=== PATIENT | female | born 1930 | race Caucasian/White ===

== ENCOUNTER 2016-09-01 11:21 | Inpatient (IN) | payer OTHER ==
[~2016-09-01] VITALS: Ht 167.6 cm; Wt 101.8 kg
[~2016-09-01 11:21] MED LIST: ALLOPURINOL100 MG PO; Ambien PO; BENZONATATE100 MG PO; CARDIZEM CD120 M1 PO; CARDIZEM CD240 MG PO; CARTIA XT120 MG PO; CARTIA XT240 MG PO; CIPRO500 MG PO; COLACE100 MG PO; Cardizem CD,Cartia X PO; Colace PO; DILTIAZEM 24HR240 MG PO; FUROSEMIDE40 MG PO; GEMFIBROZIL600 MG PO; K-DUR20 MEQ PO; LASIX40 MG PO; LEVAQUIN750 MG PO; Lopid PO; MUCINEX600 MG PO; Miralax, Glycolax PO; PANTOPRAZOLE SO40 MG PO; PAROXETINE HCL20 MG PO; PAXIL20 MG PO; PRAVASTATIN SOD40 MG PO; PROAIR HFA8.5 GM IH; Paxil PO; Potassium Chloride 1 PO; Protonix PO; SIMVASTATIN20 MG PO; TYLENOL ARTHRI650 MG PO; TYLENOL PM1 CAPLET PO; TYLENOL REGULA325 MG PO; Toprol XL PO; XARELTO15 MG PO; Xarelto PO; ZESTORETIC 20-1 EAC1 PO; Zestoretic,Prinzide PO; Zyloprim PO
[2016-09-01 12:54] LABS: HEMATOCRIT 23.8 % (36.0-46.0); MCH 37.1 PG (29.0-34.0); MCHC 33.2 G/DL (30.0-36.0); MCV 111.7 FL (83-99); MEAN PLAT.VOLUME 9.9 uM^3 (9.5-12.4); PLATELET COUNT 100 K/uL (156-360); RBC DIS.WIDTH-CV 15.9 % (11.8-14.6); RBC DIS.WIDTH-SD 64.4 % (39-53); RED BLOOD COUNT 2.13 M/uL (3.80-5.20)
[2016-09-01 12:56] LABS: INTER. NORMALIZED RATIO 1.2; PROTHROMBIN TIME 12.4 (9.2-11.2)
[2016-09-01 12:57] LABS: WHITE BLOOD COUNT 1.8 K/uL (4.1-10.2)
[2016-09-01 13:12] LABS: CHLORIDE 104 mEq/L (99-109); POTASSIUM 4.8 mEq/L (3.7-5.4); SODIUM 140 mEq/L (136-147)
[2016-09-01 13:14] LABS: GLUCOSE 139 mg/dL (70-99)
[2016-09-01 13:16] LABS: ANION GAP 12 MEQ/L (2-14); TOTAL BILIRUBIN 0.4 mg/dL (0.0-1.0)
[2016-09-01 13:18] LABS: ALKALINE PHOSPHATASE 93 IU/L (3-129); GFR ESTIMATE (CALCULATED) 33 mL/min/
[2016-09-01 13:19] LABS: UREA NITROGEN (BUN) 43 mg/dL (9-23)
[2016-09-01 15:39] LABS: PTT 26.6 (25-32)
[2016-09-01] MEDS ORDERED: ALLOPURINOL300 MG PO (15:56)
[2016-09-01] MEDS ORDERED: BUSPIRONE HCL10 MG PO (15:59)
[2016-09-01] MEDS ORDERED: ENDOCET 5-3251 EACH PO (15:59)
[2016-09-01 16:00] LABS: FIBRINOGEN 523 MG/DL (160-450)
[2016-09-01] MEDS ORDERED: VITAMIN D31000 UNI2 PO ×2 (16:00→18:52)
[2016-09-01] MEDS ORDERED: TYLENOL ARTHRI650 MG PO (16:12)
[2016-09-01 16:13] VITALS: BP 112/96
[2016-09-01 17:15] LABS: ABS NEUTROPHIL COUNT 0.5; ANISOCYTOSIS 2+; EOSINOPHIL ABS CT 0; MACROCYTES 2+; POIKILOCYTOSIS 1+; SCHISTOCYTES 1+
[2016-09-01 17:25] LABS: PLAT.SUFFICIENCY DECREASED
[2016-09-01 18:17] VITALS: BP 135/61
[2016-09-01 18:21] VITALS: BP 139/63
[2016-09-01 18:42] VITALS: BP 142/63
[2016-09-01 19:49] VITALS: BP 138/62
[2016-09-01 19:59] VITALS: BP 126/60
[2016-09-02] VITALS (7 sets, daily range): BP systolic 134–142; BP diastolic 60–68
[2016-09-02 05:27] LABS: HEMATOCRIT 25.5 % (36.0-46.0); MCH 35.2 PG (29.0-34.0); MCHC 33.7 G/DL (30.0-36.0); MCV 104.5 FL (83-99); RBC DIS.WIDTH-CV 19.2 % (11.8-14.6); RBC DIS.WIDTH-SD 72.5 % (39-53); RED BLOOD COUNT 2.44 M/uL (3.80-5.20)
[2016-09-02 05:44] LABS: ANION GAP 10 MEQ/L (2-14); CHLORIDE 102 MEQ/L (99-109); GFR ESTIMATE (CALCULATED) 41 mL/min/; GLUCOSE 112 mg/dL (70-99); POTASSIUM 4.3 MEQ/L (3.7-5.4); SAMPLE HEMOLYSIS CHECK 0; SAMPLE ICTERIC CHECK 0; SAMPLE LIPEMIA CHECK 0; SODIUM 138 MEQ/L (136-147); UREA NITROGEN (BUN) 35 mg/dL (9-23); URIC ACID 6.2 mg/dL (3.1-9.2)
[2016-09-02 11:00] LABS: ABS NEUTROPHIL COUNT 0.5; ANISOCYTOSIS 2+; EOSINOPHIL ABS CT 0.1; INSTRUMENT ABS NEUTROPHIL CT 0.4 K/uL; MACROCYTES 1+; MEAN PLAT.VOLUME 9.7 uM^3 (9.5-12.4); MICROCYTOSIS 1+; PLAT.SUFFICIENCY DECREASED
[2016-09-03] VITALS (7 sets, daily range): BP systolic 125–173; BP diastolic 58–72
[2016-09-03 07:08] LABS: HEMATOCRIT 25.9 % (36.0-46.0); MCH 34.7 PG (29.0-34.0); MCHC 33.6 G/DL (30.0-36.0); MCV 103.2 FL (83-99); MEAN PLAT.VOLUME 9.1 uM^3 (9.5-12.4); RBC DIS.WIDTH-CV 18.7 % (11.8-14.6); RBC DIS.WIDTH-SD 70.8 % (39-53); RED BLOOD COUNT 2.51 M/uL (3.80-5.20)
[2016-09-03 07:14] LABS: ANION GAP 9 MEQ/L (2-14); CHLORIDE 99 MEQ/L (99-109); GFR ESTIMATE (CALCULATED) 45 mL/min/; GLUCOSE 109 mg/dL (70-99); PLATELET COUNT 67 K/uL (156-360); POTASSIUM 3.9 MEQ/L (3.7-5.4); SAMPLE HEMOLYSIS CHECK 0; SAMPLE ICTERIC CHECK 0; SAMPLE LIPEMIA CHECK 0; SODIUM 137 MEQ/L (136-147); UREA NITROGEN (BUN) 28 mg/dL (9-23); WHITE BLOOD COUNT 1.6 K/uL (4.1-10.2)
[2016-09-03 07:56] LABS: GLOBULINS 3.3 G/DL (2.3-3.5)
[2016-09-03 09:04] LABS: ABS NEUTROPHIL COUNT 0.4; ANISOCYTOSIS 2+; EOSINOPHIL ABS CT 0; INSTRUMENT ABS NEUTROPHIL CT 0.3 K/uL; MACROCYTES 2+; PLAT.SUFFICIENCY DECREASED
[2016-09-04 03:47] VITALS: BP 150/65
[2016-09-04 07:42] VITALS: BP 120/62
[2016-09-04 11:34] VITALS: BP 139/62
[2016-09-04 15:45] VITALS: BP 143/62
[2016-09-04 19:01] VITALS: BP 134/61
[2016-09-04 22:42] VITALS: BP 139/65
[2016-09-05] VITALS (8 sets, daily range): BP systolic 110–172; BP diastolic 62–85
[2016-09-05 07:29] LABS: HEMATOCRIT 25.5 % (36.0-46.0); MCH 34.9 PG (29.0-34.0); MCHC 34.1 G/DL (30.0-36.0); MCV 102.4 FL (83-99); RBC DIS.WIDTH-CV 18.2 % (11.8-14.6); RBC DIS.WIDTH-SD 67.9 % (39-53); RED BLOOD COUNT 2.49 M/uL (3.80-5.20)
[2016-09-05 07:31] LABS: ANION GAP 11 MEQ/L (2-14); CHLORIDE 98 MEQ/L (99-109); GFR ESTIMATE (CALCULATED) 50 mL/min/; GLUCOSE 115 mg/dL (70-99); SAMPLE HEMOLYSIS CHECK 0; SAMPLE ICTERIC CHECK 0; SAMPLE LIPEMIA CHECK 0; SODIUM 137 MEQ/L (136-147); UREA NITROGEN (BUN) 25 mg/dL (9-23)
[2016-09-05 07:35] LABS: WHITE BLOOD COUNT 1.7 K/uL (4.1-10.2)
[2016-09-05 07:47] LABS: ABS NEUTROPHIL COUNT 0.6; ANISOCYTOSIS 2+; ATYPICAL LYMPHOCYTE 1.8 %; BAND NEUTROPHILS 2.7 % (0-8.0); BASOPHILS 8.9 %; EOSINOPHIL ABS CT 0; INSTRUMENT ABS NEUTROPHIL CT 0.4 K/uL; LYMPHOCYTES 48.2 % (15.0-45.0); MACROCYTES 1+; MEAN PLAT.VOLUME 9.9 uM^3 (9.5-12.4); METAMYELOCYTES 0.9 %; MYELOCYTES 0.9 %; PLAT.SUFFICIENCY DECREASED; PLATELET COUNT 73 K/uL (156-360); POIKILOCYTOSIS 1+; SEG.NEUTROPHILS 30.4 % (46.0-76.0)
[2016-09-05 12:32] LABS: ORDERED MAN DIFF Y
[2016-09-05] MEDS ORDERED: LASIX40 MG PO (12:46)
[2016-09-05 14:06] LABS: ALBUMIN PERCENT 53.8 %; ALPHA-1 GLOBULIN 0.23 G/DL (0.15-0.40); ALPHA-1 PERCENT 3.6 %; ALPHA-2 GLOBULIN 0.86 G/DL (0.45-0.85); ALPHA-2 PERCENT 13.3 %; BETA PERCENT 9.6 %; GAMMA PERCENT 19.7 %; SERUM GEL NO. 61-7
[2016-09-06 13:55] LABS: IFE GEL NO. 59-2
[2016-09-07 13:41] LABS: Flow Clinical Information NOT PROVIDED (()); Flow Number of Markers 22 (()); Flow Spec Viability 96 % (()); Flow Specimen Type BONE MARROW (())
== END 2016-09-05 19:58 | disposition home or self-care (01) | DRG 309 ==
LOC: EME 11:21 → EDOF 15:57 → 5EAST 15:57
PROVIDERS: Family Medicine Sports Medicine; Internal Medicine Hematology & Oncology; Nurse Practitioner Family; Radiology Diagnostic Radiology
PROC: 30233N1 Transfusion of Nonautologous Red Blood Cells into Peripheral Vein, Percutaneous Approach (ICD-10-PCS; principal; 2016-09-01)
PROC: 07DR3ZX Extraction of Iliac Bone Marrow, Percutaneous Approach, Diagnostic (ICD-10-PCS; 2016-09-05)
DX: I48.0 Paroxysmal atrial fibrillation (principal); D61.818 Other pancytopenia; D64.9 Anemia, unspecified; D72.819 Decreased white blood cell count, unspecified; D69.6 Thrombocytopenia, unspecified; I10 Essential (primary) hypertension; C85.90 Non-Hodgkin lymphoma, unspecified, unspecified site; I48.2 Chronic atrial fibrillation; E78.5 Hyperlipidemia, unspecified; F32.9 Major depressive disorder, single episode, unspecified; I50.9 Heart failure, unspecified; F41.9 Anxiety disorder, unspecified; M10.9 Gout, unspecified; Z79.01 Long term (current) use of anticoagulants; I25.10 Atherosclerotic heart disease of native coronary artery without angina pectoris; K21.9 Gastro-esophageal reflux disease without esophagitis
CPT/HCPCS: 36415; 71020; 77012; 80048; 80053; 81003; 82746; 83540; 83883 90; 84165; 84466; 84550; 85007; 85025; 85027; 85384; 85610; 85730; 85999; 86334; 86900; 86901; 86920; 88184 90; 88185 90; 88189 90; 88271 90; 88275 90; 88291 90; 99281; 99285; J1650; J1940; J2405; J3010; P9016

== ENCOUNTER 2016-10-07 14:39 | Inpatient (IN) | payer OTHER ==
[~2016-10-07] VITALS: Ht 165.1 cm; Wt 100.1 kg
[~2016-10-07 14:39] MED LIST changes: +ALLOPURINOL300 MG PO; +BUSPIRONE HCL10 MG PO; +ENDOCET 5-3251 EACH PO; +VITAMIN D31000 UNI2 PO
[2016-10-07 16:06] LABS: HEMATOCRIT 26.4 % (36.0-46.0); MCH 33.5 PG (29.0-34.0); MCHC 33.3 G/DL (30.0-36.0); MEAN PLAT.VOLUME 9.6 uM^3 (9.5-12.4); NRBC (%) 0.6 /100 WBC (0-0); PLATELET COUNT 56 K/uL (156-360); RBC DIS.WIDTH-CV 22.2 % (11.8-14.6); RBC DIS.WIDTH-SD 80.1 % (39-53); RED BLOOD COUNT 2.63 M/uL (3.80-5.20); WHITE BLOOD COUNT 3.3 K/uL (4.1-10.2)
[2016-10-07 16:09] LABS: MCV 100.4 FL (83-99)
[2016-10-07 16:29] LABS: CHLORIDE 97 mEq/L (99-109); POTASSIUM 4.2 mEq/L (3.7-5.4); SODIUM 136 mEq/L (136-147)
[2016-10-07 16:30] LABS: GLUCOSE 118 mg/dL (70-99)
[2016-10-07 16:32] LABS: ANION GAP 15 MEQ/L (2-14)
[2016-10-07 16:34] LABS: GFR ESTIMATE (CALCULATED) 56 mL/min/
[2016-10-07 16:35] LABS: UREA NITROGEN (BUN) 19 mg/dL (9-23)
[2016-10-07 17:47] LABS: TROP-I INTERPRETATION NEGATIVE; TROPONIN-I < 0.01 ng/mL (0.0-0.30)
[2016-10-07 20:43] LABS: ADD MIUA? YES; BILIRUBIN NEGATIVE; BLOOD SMALL; COLOR YELLOW ((YELLOW)); GLUCOSE (STRIP) NEGATIVE; KETONES NEGATIVE; LEUKOCYTES NEGATIVE; NITRITE POSITIVE; PROTEIN (STRIP) NEGATIVE; SPECIFIC GRAVITY 1.014 (1.000-1.030); UROBILINOGEN 0.2 MG/DL (0.2-1.0)
[2016-10-07 20:58] LABS: BACTERIA 3+ /HPF; EPITHELIAL CELLS 2+ /HPF; HYALINE CASTS 0-5 /LPF; MUCUS TRACE /LPF; RED BLOOD CELLS 0-5 /HPF (0-5); UCUL ADDED? NO; WHITE BLOOD CELLS 0-5 /HPF (0-5)
[2016-10-07] MEDS ORDERED: AMBIEN5 MG PO (22:06)
[2016-10-08] VITALS (15 sets, daily range): BP systolic 139–176; BP diastolic 64–79
[2016-10-08 08:15] LABS: HEMATOCRIT 21.8 % (36.0-46.0); MCH 34.7 PG (29.0-34.0); MCHC 33.9 G/DL (30.0-36.0); MCV 102.3 FL (83-99); RBC DIS.WIDTH-CV 22.7 % (11.8-14.6); RBC DIS.WIDTH-SD 84.4 % (39-53); RED BLOOD COUNT 2.13 M/uL (3.80-5.20); WHITE BLOOD COUNT 2.9 K/uL (4.1-10.2)
[2016-10-08 09:05] LABS: ANION GAP 8 MEQ/L (2-14); CHLORIDE 98 MEQ/L (99-109); GFR ESTIMATE (CALCULATED) 56 mL/min/; GLUCOSE 111 mg/dL (70-99); SAMPLE HEMOLYSIS CHECK 0; SAMPLE ICTERIC CHECK 0; SAMPLE LIPEMIA CHECK 0; SODIUM 133 MEQ/L (136-147); UREA NITROGEN (BUN) 19 mg/dL (9-23)
[2016-10-08 09:56] LABS: ABS NEUTROPHIL COUNT 1.1; ANISOCYTOSIS 2+; BAND NEUTROPHILS 3.5 % (0-8.0); BASOPHILS 6.1 %; EOSINOPHIL ABS CT 0; HYPOCHROMASIA 1+; IMM.PLATELET FRACTION 1.9 (1-7); INSTRUMENT ABS NEUTROPHIL CT 0.8 K/uL; LYMPHOCYTES 42.6 % (15.0-45.0); MACROCYTES 1+; MEAN PLAT.VOLUME 10.7 uM^3 (9.5-12.4); METAMYELOCYTES 0.9 %; MICROCYTOSIS 1+; MYELOCYTES 1.7 %; PLAT.SUFFICIENCY DECREASED; PLATELET COUNT 50 K/uL (156-360); POLYCHROMASIA 1+; SEG.NEUTROPHILS 33.9 % (46.0-76.0); SPHEROCYTES 1+
[2016-10-09 04:10] VITALS: BP 152/66
[2016-10-09 06:52] LABS: MCH 34.4 PG (29.0-34.0); MCHC 34.8 G/DL (30.0-36.0); MCV 98.8 FL (83-99); RBC DIS.WIDTH-CV 21.5 % (11.8-14.6); RBC DIS.WIDTH-SD 73.2 % (39-53); RED BLOOD COUNT 2.53 M/uL (3.80-5.20); WHITE BLOOD COUNT 3.3 K/uL (4.1-10.2)
[2016-10-09 07:16] LABS: ANION GAP 11 MEQ/L (2-14); CHLORIDE 100 MEQ/L (99-109); GFR ESTIMATE (CALCULATED) 56 mL/min/; GLUCOSE 127 mg/dL (70-99); POTASSIUM 3.6 MEQ/L (3.7-5.4); SAMPLE HEMOLYSIS CHECK 0; SAMPLE ICTERIC CHECK 0; SAMPLE LIPEMIA CHECK 0; SODIUM 136 MEQ/L (136-147); UREA NITROGEN (BUN) 20 mg/dL (9-23); URIC ACID 6.2 mg/dL (3.1-9.2)
[2016-10-09 07:31] VITALS: BP 127/58
[2016-10-09 11:18] LABS: ABS NEUTROPHIL COUNT 2.2; ANISOCYTOSIS 2+; ATYPICAL LYMPHOCYTE 0.9 %; BAND NEUTROPHILS 13.2 % (0-8.0); BASOPHILS 1.7 %; EOSINOPHIL ABS CT 0; HYPOCHROMASIA 2+; IMM.PLATELET FRACTION 1.9 (1-7); INSTRUMENT ABS NEUTROPHIL CT 1.2 K/uL; MACROCYTES 1+; MEAN PLAT.VOLUME 11.4 uM^3 (9.5-12.4); METAMYELOCYTES 4.4 %; MICROCYTOSIS 1+; MYELOCYTES 0.9 %; NUCLEATED RBC'S 0.9; PLAT.SUFFICIENCY DECREASED; PLATELET COUNT 46 K/uL (156-360); POLYCHROMASIA 1+; SEG.NEUTROPHILS 53.5 % (46.0-76.0); SPHEROCYTES 1+; TOX.VACUOLIZATION 1+
[2016-10-09 11:19] LABS: LYMPHOCYTES 19.3 % (15.0-45.0)
[2016-10-09 13:19] VITALS: BP 128/59
[2016-10-09 15:40] VITALS: BP 133/59
[2016-10-09 20:29] VITALS: BP 146/66
[2016-10-10] VITALS (7 sets, daily range): BP systolic 127–140; BP diastolic 58–91
[2016-10-10 08:30] LABS: HEMATOCRIT 24.7 % (36.0-46.0); RBC DIS.WIDTH-CV 21.9 % (11.8-14.6); RBC DIS.WIDTH-SD 76.8 % (39-53); RED BLOOD COUNT 2.47 M/uL (3.80-5.20); WHITE BLOOD COUNT 3.5 K/uL (4.1-10.2)
[2016-10-10 08:57] LABS: ANION GAP 10 MEQ/L (2-14); CHLORIDE 101 MEQ/L (99-109); GFR ESTIMATE (CALCULATED) 50 mL/min/; GLUCOSE 116 mg/dL (70-99); SAMPLE HEMOLYSIS CHECK 2; SAMPLE ICTERIC CHECK 0; SAMPLE LIPEMIA CHECK 0; SODIUM 135 MEQ/L (136-147); UREA NITROGEN (BUN) 22 mg/dL (9-23)
[2016-10-10 09:00] LABS: POTASSIUM ND MEQ/L (3.7-5.4)
[2016-10-10 10:32] LABS: POTASSIUM 3.9 MEQ/L (3.7-5.4)
[2016-10-10 10:33] LABS: ABS NEUTROPHIL COUNT 2.1; ANISOCYTOSIS 1+; ATYPICAL LYMPHOCYTE 4.6 %; BAND NEUTROPHILS 9.3 % (0-8.0); BASOPHILS 4.6 %; EOSINOPHIL ABS CT 0; EOSINOPHILS 0.9 % (0-5.0); IMM.PLATELET FRACTION 2.6 (1-7); INSTRUMENT ABS NEUTROPHIL CT 1.3 K/uL; LYMPHOCYTES 13.9 % (15.0-45.0); MACROCYTES 1+; MEAN PLAT.VOLUME 11.2 uM^3 (9.5-12.4); METAMYELOCYTES 1.9 %; MYELOCYTES 7.4 %; NUCLEATED RBC'S 0.9; PLAT.SUFFICIENCY DECREASED; PLATELET COUNT 50 K/uL (156-360); SEG.NEUTROPHILS 50.9 % (46.0-76.0); SMUDGE CELLS 17.6
[2016-10-11 03:38] VITALS: BP 138/55
[2016-10-11 08:38] VITALS: BP 122/64
[2016-10-11 12:57] VITALS: BP 131/60
[2016-10-11 16:13] VITALS: BP 131/59
[2016-10-11 19:53] VITALS: BP 123/57
[2016-10-11 23:18] VITALS: BP 150/66
[2016-10-12 03:20] VITALS: BP 125/66
[2016-10-12 07:40] VITALS: BP 130/80
[2016-10-12 08:26] LABS: HEMATOCRIT 24.1 % (36.0-46.0); MCHC 34.4 G/DL (30.0-36.0); MCV 98.8 FL (83-99); RBC DIS.WIDTH-CV 21.9 % (11.8-14.6); RBC DIS.WIDTH-SD 75.9 % (39-53); RED BLOOD COUNT 2.44 M/uL (3.80-5.20); WHITE BLOOD COUNT 4.9 K/uL (4.1-10.2)
[2016-10-12 08:50] LABS: ANION GAP 11 MEQ/L (2-14); CHLORIDE 100 MEQ/L (99-109); GFR ESTIMATE (CALCULATED) 56 mL/min/; GLUCOSE 111 mg/dL (70-99); POTASSIUM 3.8 MEQ/L (3.7-5.4); SAMPLE HEMOLYSIS CHECK 0; SAMPLE ICTERIC CHECK 0; SAMPLE LIPEMIA CHECK 0; SODIUM 135 MEQ/L (136-147); UREA NITROGEN (BUN) 24 mg/dL (9-23)
[2016-10-12 09:03] LABS: ABS NEUTROPHIL COUNT 2.7; ANISOCYTOSIS 2+; EOSINOPHIL ABS CT 0.1; HEMATOLOGY COMMENT 1 OTHERS = IMMATURE MONONUCLEAR CELLS; IMM.PLATELET FRACTION 3.1 (1-7); INSTRUMENT ABS NEUTROPHIL CT 1.6 K/uL; MACROCYTES 1+; PLAT.SUFFICIENCY DECREASED; PLATELET CLUMPS PRESENT - PLATELET COUNTS APPEARS DECREASED
[2016-10-12 09:04] LABS: PLATELET COUNT UNABLE TO REPORT K/uL (156-360)
[2016-10-12 11:22] VITALS: BP 124/60
[2016-10-12] MEDS ORDERED: PANTOPRAZOLE SO40 MG PO (15:01)
[2016-10-12] MEDS ORDERED: BUSPAR10 MG PO (15:04)
== END 2016-10-12 17:38 | DRG 690 ==
LOC: EME 14:39 → 2EAST 23:39 → 3EAST 23:39 → EDOF 23:39 → 3EAST 10-08 02:45 → 2EAST 10-10 18:09
PROVIDERS: Emergency Medicine; Family Medicine Sports Medicine; Hospitalist; Physician Assistant
PROC: 30233N1 Transfusion of Nonautologous Red Blood Cells into Peripheral Vein, Percutaneous Approach (ICD-10-PCS; principal; 2016-10-08)
DX: N39.0 Urinary tract infection, site not specified (principal); D61.818 Other pancytopenia; I48.0 Paroxysmal atrial fibrillation; I48.2 Chronic atrial fibrillation; J98.11 Atelectasis; I10 Essential (primary) hypertension; R19.7 Diarrhea, unspecified; R11.2 Nausea with vomiting, unspecified; M25.562 Pain in left knee; R10.9 Unspecified abdominal pain; E78.5 Hyperlipidemia, unspecified; F32.9 Major depressive disorder, single episode, unspecified; I51.7 Cardiomegaly; R09.02 Hypoxemia; M10.9 Gout, unspecified; I70.0 Atherosclerosis of aorta; D35.02 Benign neoplasm of left adrenal gland; R26.2 Difficulty in walking, not elsewhere classified; E66.9 Obesity, unspecified; Z86.718 Personal history of other venous thrombosis and embolism; Z85.42 Personal history of malignant neoplasm of other parts of uterus; Z85.6 Personal history of leukemia; Z68.36 Body mass index [BMI] 36.0-36.9, adult
CPT/HCPCS: 71020; 71250; 73564; 80048; 81003; 83605; 84484; 84550; 84999; 85025; 85027; 86900; 86901; 86920; 87040; 93005; 93971; 94799; 97530 GP; 99281; 99285; J0696; J1644; J1885; J1940; J2270; J2405; J7030; J7050; P9016

== ENCOUNTER 2016-10-17 23:45 | Inpatient (IN) | payer OTHER ==
[~2016-10-17] VITALS: Ht 165.1 cm; Wt 98.1 kg
[~2016-10-17 23:45] MED LIST changes: +AMBIEN5 MG PO; +BUSPAR10 MG PO
[2016-10-18] VITALS (15 sets, daily range): BP systolic 70–181; BP diastolic 38–110
[2016-10-18 00:20] LABS: BASE EXCESS -0.8 mEq/L (-3 to +3); BICARBONATE 22.3 mEq/L (22-26); CARBOXY HGB 1.9 % (0-5); METHEMOGLOBIN 1.1 % (0-1.5); PCO2 30 mm Hg (35-45); PO2 54 mm Hg (80-100); pH 7.48 (7.35-7.45)
[2016-10-18 00:21] LABS: COMMENTS - BLOOD GASES C+A+; DEVICE NEB TX; O2 FLOW 7 L/MIN; SITE RR; TOTAL RESP RATE 32 resp/min
[2016-10-18 01:21] LABS: HEMATOCRIT 26.5 % (36.0-46.0); MCH 32.7 PG (29.0-34.0); MCHC 33.6 G/DL (30.0-36.0); MCV 97.4 FL (83-99); NRBC (%) 0.3 /100 WBC (0-0); RBC DIS.WIDTH-CV 21.4 % (11.8-14.6); RBC DIS.WIDTH-SD 73.6 % (39-53)
[2016-10-18 01:22] LABS: CHLORIDE 100 mEq/L (99-109); POTASSIUM 4.2 mEq/L (3.7-5.4); SODIUM 133 mEq/L (136-147)
[2016-10-18 01:25] LABS: GLUCOSE 145 mg/dL (70-99)
[2016-10-18 01:26] LABS: RED BLOOD COUNT 2.72 M/uL (3.80-5.20)
[2016-10-18 01:26] LABS: ANION GAP 14 MEQ/L (2-14)
[2016-10-18 01:27] LABS: TOTAL BILIRUBIN 0.6 mg/dL (0.0-1.0)
[2016-10-18 01:28] LABS: ALKALINE PHOSPHATASE 136 IU/L (3-129); GFR ESTIMATE (CALCULATED) 50 mL/min/
[2016-10-18 01:29] LABS: UREA NITROGEN (BUN) 28 mg/dL (9-23)
[2016-10-18 01:32] LABS: LIPASE 18 U/L (1.0-51.0)
[2016-10-18 01:33] LABS: TROP-I INTERPRETATION NEGATIVE; TROPONIN-I 0.02 ng/mL (0.0-0.30)
[2016-10-18 02:12] LABS: INTER. NORMALIZED RATIO 1.2; PTT 22.6 (25-32)
[2016-10-18 02:36] LABS: ABS NEUTROPHIL COUNT 5.6; ANISOCYTOSIS 1+; EOSINOPHIL ABS CT 0; HYPOCHROMASIA 1+; INSTRUMENT ABS NEUTROPHIL CT 3.4 K/uL; MACROCYTES 1+; MEAN PLAT.VOLUME 11.8 uM^3 (9.5-12.4); MICROCYTOSIS 1+; PLAT.SUFFICIENCY DECREASED; PLATELET COUNT 54 K/uL (156-360); POLYCHROMASIA 1+; SPHEROCYTES 1+; TOX.VACUOLIZATION 1+
[2016-10-18 13:55] LABS: BASE EXCESS -3.8 mEq/L (-3 to +3); BICARBONATE 20.6 mEq/L (22-26); COMMENTS - BLOOD GASES A+C+; METHEMOGLOBIN 1.5 % (0-1.5); O2 FLOW 15 L/MIN; PCO2 34 mm Hg (35-45); PO2 52 mm Hg (80-100); SITE LR; pH 7.39 (7.35-7.45)
[2016-10-18 13:56] LABS: DEVICE NRBM + HHFNC; FI02 100 %
[2016-10-18 14:10] LABS: HEMATOCRIT 27.8 % (36.0-46.0); MCH 33.3 PG (29.0-34.0); MCHC 33.1 G/DL (30.0-36.0); MCV 100.7 FL (83-99); NRBC (%) 0.4 /100 WBC (0-0); PLATELET COUNT 55 K/uL (156-360); RBC DIS.WIDTH-CV 21.9 % (11.8-14.6); RBC DIS.WIDTH-SD 76.8 % (39-53); RED BLOOD COUNT 2.76 M/uL (3.80-5.20); WHITE BLOOD COUNT 12.7 K/uL (4.1-10.2)
[2016-10-18 14:31] LABS: TROP-I INTERPRETATION NEGATIVE; TROPONIN-I 0.03 ng/mL (0.0-0.30)
[2016-10-18 15:03] LABS: MAGNESIUM 1.5 mg/dl (1.3-2.7)
[2016-10-18 15:46] LABS: INFLUENZA A VIRAL ANTIGEN NEGATIVE; INFLUENZA B VIRAL ANTIGEN NEGATIVE
[2016-10-18 16:30] LABS: METH RESISTANT S AUREUS PCR NEGATIVE (NEGATIVE)
[2016-10-18 16:52] LABS: ABS NEUTROPHIL COUNT 6.5; ANISOCYTOSIS 2+; ATYPICAL LYMPHOCYTE 1.8 %; BAND NEUTROPHILS 10.9 % (0-8.0); EOSINOPHIL ABS CT 0; INSTRUMENT ABS NEUTROPHIL CT 3.2 K/uL; LYMPHOCYTES 12.7 % (15.0-45.0); MACROCYTES 2+; METAMYELOCYTES 4.6 %; MICROCYTOSIS 1+; MYELOCYTES 2.7 %; NUCLEATED RBC'S 0.9; SMUDGE CELLS 10.9
[2016-10-18 16:56] LABS: PROBE CHECK PASS; SPECIMEN PROCESSING CONTROL PASS
[2016-10-18] MEDS ORDERED: PANTOPRAZOLE SO40 MG PO (17:45)
[2016-10-18] MEDS ORDERED: PREDNISONE20 MG PO (17:47)
[2016-10-18] MEDS ORDERED: LASIX40 MG PO (17:48)
[2016-10-18 18:08] LABS: CREATINE KINASE 20 IU/L (1-294); TOTAL CK 20 IU/L (1-294)
[2016-10-18 18:12] LABS: TROP-I INTERPRETATION NEGATIVE; TROPONIN-I 0.04 ng/mL (0.0-0.30)
[2016-10-18 18:27] LABS: CK-MB 0.6 ng/mL (0.0-4.9)
[2016-10-18 18:45] LABS: ANION GAP 15 MEQ/L (2-14); CHLORIDE 99 MEQ/L (99-109); POTASSIUM 4.1 MEQ/L (3.7-5.4); SODIUM 134 MEQ/L (136-147)
[2016-10-18 19:02] LABS: GFR ESTIMATE (CALCULATED) 50 mL/min/; GLUCOSE 169 mg/dL (70-99); UREA NITROGEN (BUN) 31 mg/dL (9-23)
[2016-10-19] VITALS (24 sets, daily range): BP systolic 91–142; BP diastolic 43–76
[2016-10-19 00:55] LABS: CREATINE KINASE 15 IU/L (1-294); TOTAL CK 15 IU/L (1-294)
[2016-10-19 00:58] LABS: TROP-I INTERPRETATION NEGATIVE; TROPONIN-I 0.02 ng/mL (0.0-0.30)
[2016-10-19 01:00] LABS: CK-MB 0.5 ng/mL (0.0-4.9)
[2016-10-19 06:17] LABS: HEMATOCRIT 24.5 % (36.0-46.0); MCH 33.6 PG (29.0-34.0); MCHC 33.9 G/DL (30.0-36.0); MCV 99.2 FL (83-99); NRBC (%) 0.3 /100 WBC (0-0); RBC DIS.WIDTH-CV 21.5 % (11.8-14.6); RBC DIS.WIDTH-SD 75.8 % (39-53); RED BLOOD COUNT 2.47 M/uL (3.80-5.20); WHITE BLOOD COUNT 6.6 K/uL (4.1-10.2)
[2016-10-19 06:18] LABS: ANION GAP 16 MEQ/L (2-14); CHLORIDE 100 MEQ/L (99-109); GFR ESTIMATE (CALCULATED) 41 mL/min/; GLUCOSE 241 mg/dL (70-99); POTASSIUM 4.2 MEQ/L (3.7-5.4); SAMPLE HEMOLYSIS CHECK 1; SAMPLE ICTERIC CHECK 0; SAMPLE LIPEMIA CHECK 0; SODIUM 136 MEQ/L (136-147); TOTAL CK 44 IU/L (1-294); UREA NITROGEN (BUN) 33 mg/dL (9-23)
[2016-10-19 06:23] LABS: TROP-I INTERPRETATION NEGATIVE; TROPONIN-I 0.02 ng/mL (0.0-0.30)
[2016-10-19 06:43] LABS: CREATINE KINASE 44 IU/L (1-294); MAGNESIUM 1.9 mg/dl (1.3-2.7)
[2016-10-19 07:12] LABS: CK-MB 1.2 ng/mL (0.0-4.9)
[2016-10-19 07:53] LABS: ABS NEUTROPHIL COUNT 3.9; EOSINOPHIL ABS CT 0; IMM.PLATELET FRACTION 4.1 (1-7); INSTRUMENT ABS NEUTROPHIL CT 1.6 K/uL; MEAN PLAT.VOLUME 10.3 uM^3 (9.5-12.4)
[2016-10-19 07:54] LABS: PLATELET COUNT 33 K/uL (156-360)
[2016-10-19 07:55] LABS: PLAT.SUFFICIENCY DECREASED
[2016-10-19 09:02] LABS: INTERNAL CONTROL VALID? YES
[2016-10-19 13:41] LABS: CREATINE KINASE 13 IU/L (1-294); TOTAL CK 13 IU/L (1-294)
[2016-10-19 13:43] LABS: TROP-I INTERPRETATION NEGATIVE; TROPONIN-I 0.02 ng/mL (0.0-0.30)
[2016-10-19 13:45] LABS: CK-MB 1.3 ng/mL (0.0-4.9)
[2016-10-20] VITALS (8 sets, daily range): BP systolic 91–131; BP diastolic 55–69
[2016-10-20 06:24] LABS: HEMATOCRIT 24.8 % (36.0-46.0); MCH 33.5 PG (29.0-34.0); MCHC 33.9 G/DL (30.0-36.0); MCV 98.8 FL (83-99); NRBC (%) 0.4 /100 WBC (0-0); RBC DIS.WIDTH-CV 21.7 % (11.8-14.6); RBC DIS.WIDTH-SD 76.1 % (39-53); RED BLOOD COUNT 2.51 M/uL (3.80-5.20); WHITE BLOOD COUNT 13.6 K/uL (4.1-10.2)
[2016-10-20 06:49] LABS: ANION GAP 15 MEQ/L (2-14); CHLORIDE 98 MEQ/L (99-109); GFR ESTIMATE (CALCULATED) 38 mL/min/; GLUCOSE 152 mg/dL (70-99); SAMPLE HEMOLYSIS CHECK 0; SAMPLE ICTERIC CHECK 0; SAMPLE LIPEMIA CHECK 0; SODIUM 135 MEQ/L (136-147); UREA NITROGEN (BUN) 43 mg/dL (9-23)
[2016-10-20 07:37] LABS: ABS NEUTROPHIL COUNT 7.9; ANISOCYTOSIS 2+; BAND NEUTROPHILS 13.4 % (0-8.0); BASOPHILS 0.9 %; EOSINOPHIL ABS CT 0; INSTRUMENT ABS NEUTROPHIL CT 4.6 K/uL; LYMPHOCYTES 9.8 % (15.0-45.0); MACROCYTES 1+; MEAN PLAT.VOLUME 11.3 uM^3 (9.5-12.4); METAMYELOCYTES 4.5 %; MYELOCYTES 5.4 %; NUCLEATED RBC'S 1.8; PLAT.SUFFICIENCY DECREASED; PLATELET COUNT 42 K/uL (156-360); POIKILOCYTOSIS 1+; POLYCHROMASIA 1+; SEG.NEUTROPHILS 44.6 % (46.0-76.0); SMUDGE CELLS 25.9
== END 2016-10-20 12:18 | DRG 871 ==
LOC: EME → EDBD 23:45 → EME 23:45 → 4WEST 10-18 01:50 → EDOF 10-18 01:50 → 4WEST 10-18 01:50 → 5EAST 10-18 01:50 → 4WEST 10-18 14:10
PROVIDERS: Emergency Medicine; Family Medicine Sports Medicine; Hospitalist; Internal Medicine Nephrology
DX: A41.9 Sepsis, unspecified organism (principal); J96.01 Acute respiratory failure with hypoxia; J18.9 Pneumonia, unspecified organism; E87.2 Acidosis; I13.0 Hypertensive heart and chronic kidney disease with heart failure and stage 1 through stage 4 chronic kidney disease, or unspecified chronic kidney disease; I50.9 Heart failure, unspecified; D46.22 Refractory anemia with excess of blasts 2; C85.90 Non-Hodgkin lymphoma, unspecified, unspecified site; D61.818 Other pancytopenia; D50.0 Iron deficiency anemia secondary to blood loss (chronic); E78.5 Hyperlipidemia, unspecified; E87.1 Hypo-osmolality and hyponatremia; I25.10 Atherosclerotic heart disease of native coronary artery without angina pectoris; I42.9 Cardiomyopathy, unspecified; I48.0 Paroxysmal atrial fibrillation; J45.909 Unspecified asthma, uncomplicated; K21.9 Gastro-esophageal reflux disease without esophagitis; M10.9 Gout, unspecified; N18.3 Chronic kidney disease, stage 3 (moderate); Y95 Nosocomial condition; Z51.5 Encounter for palliative care; Z66 Do not resuscitate; Z79.01 Long term (current) use of anticoagulants; Z79.899 Other long term (current) drug therapy; Z85.42 Personal history of malignant neoplasm of other parts of uterus; Z87.440 Personal history of urinary (tract) infections; Z86.718 Personal history of other venous thrombosis and embolism; Z90.710 Acquired absence of both cervix and uterus; F41.9 Anxiety disorder, unspecified; M19.90 Unspecified osteoarthritis, unspecified site; R00.0 Tachycardia, unspecified; R19.7 Diarrhea, unspecified; R11.2 Nausea with vomiting, unspecified
CPT/HCPCS: 36600; 71010; 80048; 80048 91; 80053; 80202; 82550; 82550 91; 82553; 82570; 82803; 82948; 83605; 83690; 83735; 83880; 84100; 84156; 84300; 84484; 85025; 85025 91; 85610; 85730; 87040; 87081; 87449; 87502; 87641; 93005; 93306; 94002; 94640; 94640 76; 94799; 99202; 99281; 99284; C9113; J0456; J0610; J0692; J1644; J1940; J1956; J2060; J2270; J2920; J2930; J3370; J3475; J7030; J7050